=== PATIENT | female | born 1950 | race Two or more races ===

== ENCOUNTER 2023-08-24 23:45 | Inpatient (IN) | payer MEDICARE, OTHER ==
[~2023-08-24] VITALS: Ht 185.4 cm; Wt 73.5 kg
[2023-08-25] VITALS (11 sets, daily range): BP systolic 120–131; BP diastolic 63–69; TEMP 97.6–98.6; O2SAT 95–99
[2023-08-25] MEDS ORDERED: PRAV20TA4 PO (02:48)
[2023-08-25] MEDS ORDERED: ACET-868 PO (02:48)
[2023-08-25] MEDS ORDERED: LOSA100T31 PO (02:48)
[2023-08-25] MEDS ORDERED: PROP10TA10 PO (02:48)
[2023-08-25] MEDS ORDERED: AMLO-212 PO (02:48)
[2023-08-25] MEDS ORDERED: OMEP20CA15 PO (02:48)
[2023-08-25] MEDS ORDERED: ALBU18HF2 IH (02:48)
[2023-08-25] MEDS ORDERED: Z GUARD REMEDY 4 OZ OINT TP PRN (03:00)
[2023-08-25] MEDS ORDERED: MAG HYDROX/AL HYDROX/SIMETH 30 ML UDC PO PRN (03:00)
[2023-08-25] MEDS ORDERED: ZOLPIDEM TARTRATE 5 MG TABLET PO PRN (03:00)
[2023-08-25] MEDS ORDERED: ONDANSETRON HCL/PF 4 MG/2 ML VIAL IVP PRN (03:00)
[2023-08-25] MEDS ORDERED: MAGNESIUM HYDROXIDE 30 ML UDC PO PRN (03:00)
[2023-08-25] MEDS ORDERED: ENOXAPARIN SODIUM 30 MG/0.3 ML DISP.SYRIN SQ SCH (03:30)
[2023-08-25] MEDS ORDERED: CEFEPIME 2 GM in IV D5W 100 ML IV ONE (03:30)
[2023-08-25 03:39] LABS: BASOPHILS % (AUTO) 0.1 % (0.0-2.0); HEMATOCRIT 39 % (33-45); HEMOGLOBIN 12.9 g/dL (11.5-14.8); LYMPHOCYTES % (AUTO) 3.8 % (20.0-44.0); MEAN CORPUSCULAR HEMOGLOBIN 31 PG (26.0-33.0); MEAN CORPUSCULAR HGB CONC 33 g/dl (31.0-36.0); MEAN CORPUSCULAR VOLUME 94 fL (82-100); MONOCYTES % (AUTO) 0.8 % (2.0-12.0); NEUTROPHILS % (AUTO) 95.3 % (43.0-81.0); PLATELET COUNT (AUTO) 256 K/uL (150-450); RED BLOOD CELL COUNT(AUTO) 4.12 MIL/uL (4.0-5.2); RED CELL DISTRIBUTION WIDTH 12.9 % (11.5-15.0); WHITE BLOOD COUNT (AUTO) 7.9 K/uL (4.3-11.0)
[2023-08-25 03:40] LABS: LYMPHOCYTES # (AUTO) 0.3 K/uL (0.8-4.8); MONOCYTES # (AUTO) 0.1 K/uL (0.1-1.30); NEUTROPHILS # (AUTO) 7.5 K/uL (1.8-8.9)
[2023-08-25 03:53] LABS: ALBUMIN 3.2 g/dL (3.4-5.0); BILIRUBIN,DIRECT 0.1 mg/dL (0.0-0.2); BILIRUBIN,TOTAL 0.3 mg/dL (0.2-1.0); CALCIUM, SERUM 8.8 mg/dL (8.5-10.1); CREATININE 0.9 mg/dL (0.6-1.3); PHOSPHORUS 3.1 mg/dL (2.5-4.9); POTASSIUM 3.1 mmol/L (3.5-5.1); TOTAL PROTEIN, SERUM 6.2 g/dL (6.4-8.2)
[2023-08-25 04:02] LABS: THYROID STIMULATING HORMONE 0.167 uIU/mL (0.358-3.74)
[2023-08-25] MEDS ORDERED: CEFEPIME 1 GM VIAL ONE ×2 (05:01→05:05)
[2023-08-25] MEDS ORDERED: ENOXAPARIN SODIUM 30 MG/0.3 ML DISP.SYRIN ONE (05:01)
[2023-08-25] MEDS: methylPREDNISolone SOD SUCC 40 MG/ML VIAL IV SCH ×3 (05:11→21:20)
[2023-08-25] MEDS ORDERED: ALBUTEROL FS 2.5 MG/0.5 ML VIAL.NEB NEB SCH (07:35)
[2023-08-25] MEDS: IPRATROPIUM NEB FS 0.5 MG/2.5 ML AMPUL.NEB NEB SCH ×4 (08:20→20:59)
[2023-08-25] MEDS ORDERED: NITR0.4T48 SL (08:31)
[2023-08-25] MEDS ORDERED: PANTOPRAZOLE 40 MG VIAL IV SCH (09:00)
[2023-08-25 10:50] LABS: ABG BASE EXCESS -4.2 mmol/L; ABG OXYGEN SATURATION 95.2 % (92.0-98.5); ABG PCO2 31.5 mmHg (35.0-45.0); ABG PH 7.408 (7.350-7.450); ABG PO2 81.5 mmHg (75.0-100.0); ABG TOTAL HEMOGLOBIN 13.3 G/dL (12.0-16.0); AaDO2 30.5 mmHg; MetHb 0.3 % (0.0-1.5); SITE, ABG Right Radial
[2023-08-25] MEDS: POTASSIUM CHLORIDE 20 MEQ TAB.PRT.SR PO SCH ×2 (10:53→12:07)
[2023-08-25] MEDS: ALBUTEROL FS 2.5 MG/0.5 ML VIAL.NEB NEB SCH ×3 (11:32→20:59)
[2023-08-25] MEDS ORDERED: PETROLATUM,WHITE PACKET 5 GM PACKET TP PRN (12:00)
[2023-08-25] MEDS: CEFEPIME 2 GM in IV D5W 100 ML IV SCH (17:33)
[2023-08-25] MEDS: ENOXAPARIN SODIUM 40 MG/0.4 ML DISP.SYRIN SQ SCH (21:24)
[2023-08-26] VITALS (9 sets, daily range): BP systolic 122–152; BP diastolic 68–82; TEMP 98.1–98.8; O2SAT 95–99
[2023-08-26] MEDS: ACETAMINOPHEN 325 MG TABLET PO PRN ×3 (02:35→16:07)
[2023-08-26] MEDS: methylPREDNISolone SOD SUCC 40 MG/ML VIAL IV SCH ×2 (05:32→10:41)
[2023-08-26] MEDS: CEFEPIME 2 GM in IV D5W 100 ML IV SCH ×2 (06:05→17:36)
[2023-08-26 06:29] LABS: BASOPHILS % (AUTO) 0.1 % (0.0-2.0); HEMATOCRIT 38 % (33-45); HEMOGLOBIN 12.9 g/dL (11.5-14.8); LYMPHOCYTES # (AUTO) 0.6 K/uL (0.8-4.8); MEAN CORPUSCULAR HEMOGLOBIN 32 PG (26.0-33.0); MEAN CORPUSCULAR HGB CONC 34 g/dl (31.0-36.0); MEAN CORPUSCULAR VOLUME 94 fL (82-100); MONOCYTES # (AUTO) 0.7 K/uL (0.1-1.30); NEUTROPHILS # (AUTO) 8.6 K/uL (1.8-8.9); NEUTROPHILS % (AUTO) 86.9 % (43.0-81.0); PLATELET COUNT (AUTO) 277 K/uL (150-450); RED BLOOD CELL COUNT(AUTO) 4.06 MIL/uL (4.0-5.2); RED CELL DISTRIBUTION WIDTH 13.2 % (11.5-15.0); WHITE BLOOD COUNT (AUTO) 9.9 K/uL (4.3-11.0)
[2023-08-26 06:50] LABS: CALCIUM, SERUM 9.2 mg/dL (8.5-10.1); CARBON DIOXIDE 23 mmol/L (21-32); CHLORIDE 105 mmol/L (98-107); CREATININE 0.6 mg/dL (0.6-1.3); GLUCOSE 210 mg/dL (74-106); MAGNESIUM 2.4 mg/dL (1.8-2.4); PHOSPHORUS 2.7 mg/dL (2.5-4.9); POTASSIUM 4.4 mmol/L (3.5-5.1); SODIUM SERUM 137 mmol/L (136-145); UREA NITROGEN, BLOOD 14 mg/dL (7-18)
[2023-08-26] MEDS: ALBUTEROL FS 2.5 MG/0.5 ML VIAL.NEB NEB SCH (07:50)
[2023-08-26] MEDS: IPRATROPIUM NEB FS 0.5 MG/2.5 ML AMPUL.NEB NEB SCH ×4 (07:50→19:47)
[2023-08-26] MEDS ORDERED: PANTOPRAZOLE 40 MG TABLET.DR PO SCH (09:00)
[2023-08-26] MEDS: ALBUTEROL HALF STRENGTH 1.25 MG/3 ML VIAL.NEB NEB SCH ×3 (11:36→19:47)
[2023-08-26] MEDS: ENOXAPARIN SODIUM 40 MG/0.4 ML DISP.SYRIN SQ SCH (21:19)
[2023-08-27] VITALS (8 sets, daily range): BP systolic 135–138; BP diastolic 66–74; TEMP 97.5–97.8; O2SAT 95–100
[2023-08-27] MEDS: PANTOPRAZOLE 40 MG TABLET.DR PO SCH ×2 (00:34→08:48)
[2023-08-27] MEDS: CEFEPIME 2 GM in IV D5W 100 ML IV SCH (05:04)
[2023-08-27] MEDS: ALBUTEROL HALF STRENGTH 1.25 MG/3 ML VIAL.NEB NEB SCH ×3 (08:15→14:53)
[2023-08-27] MEDS: IPRATROPIUM NEB FS 0.5 MG/2.5 ML AMPUL.NEB NEB SCH ×3 (08:15→14:53)
[2023-08-27] MEDS: methylPREDNISolone SOD SUCC 40 MG/ML VIAL IV SCH (08:48)
[2023-08-27] MEDS ORDERED: DOXY-326 PO (11:29)
[2023-08-27] MEDS ORDERED: PRED20TA PO (11:29)
[2023-08-27] MEDS ORDERED: FLUT1DIS INH (11:29)
[2023-08-27] MEDS ORDERED: ALBU8.5H8 INH (11:29)
== END 2023-08-27 16:16 | disposition home or self-care (01) | DRG 191 ==
LOC: TELE 08-25 01:27
PROVIDERS: ADMIT Nurse Practitioner Acute Care; ATTEND Nurse Practitioner Acute Care
DX: J44.1 Chronic obstructive pulmonary disease with (acute) exacerbation (principal); E87.20 Acidosis, unspecified; J44.0 Chronic obstructive pulmonary disease with (acute) lower respiratory infection; E78.5 Hyperlipidemia, unspecified; E87.6 Hypokalemia; I10 Essential (primary) hypertension; K21.9 Gastro-esophageal reflux disease without esophagitis; Z87.891 Personal history of nicotine dependence; Z98.84 Bariatric surgery status; J98.4 Other disorders of lung; T38.0X5A Adverse effect of glucocorticoids and synthetic analogues, initial encounter; Y92.89 Other specified places as the place of occurrence of the external cause; R73.9 Hyperglycemia, unspecified; J20.8 Acute bronchitis due to other specified organisms
CPT/HCPCS: 36415; 36600; 71045-TC; 80048-TC; 80061-TC; 80076-TC; 83735-TC; 84100-TC; 84443-TC; 85025-TC; 87081-TC; 94799-TC; A4223; C9113; G0378; J0692; J1650; J2920; J7030; J7050; J7060